=== PATIENT | male | born 1995 | race Two or more races ===

== ENCOUNTER 2022-05-21 07:34 | Emergency (ER) | payer OTHER ==
[~2022-05-21] VITALS: Ht 167.6 cm; Wt 68.0 kg
--- NOTE | 2022-05-21 07:35 | NUR ---
ReceIved pt 26yrs male came from home c/o abdominal pain x 2hrs sudnly pain andomin soft
--- NOTE | 2022-05-21 07:45 | NUR ---
UA SENT TO LAB
--- NOTE | 2022-05-21 07:55 | NUR ---
SEEN BY DR. GARDNER
--- NOTE | 2022-05-21 07:57 | NUR ---
INSERTED ANGO CATHETER G 20 ONRT AC BLOOD DROW AND SENT TO LAB
[2022-05-21] MEDS ORDERED: FAMOTIDINE/PF INJ 20 MG/2 ML VIAL IV ONE ×2 (08:00)
[2022-05-21] MEDS ORDERED: IV NS 0.9% 1,000 ML BAG IV ONE (08:00)
[2022-05-21] MEDS ORDERED: ONDANSETRON HCL/PF 4 MG/2 ML VIAL ONE (08:00)
[2022-05-21] MEDS ORDERED: KETOROLAC TROMETHAMINE 15 MG/ML VIAL ONE (08:00)
[2022-05-21] MEDS ORDERED: KETOROLAC TROMETHAMINE INJ 30 MG/ML VIAL IV ONE (08:00)
[2022-05-21] MEDS ORDERED: ONDANSETRON HCL/PF 4 MG/2 ML VIAL IVP ONE (08:00)
[2022-05-21 08:09] LABS: BASOPHILS % (AUTO) 0.1 % (0.0-2.0); EOSINOPHILS % (AUTO) 0.1 % (0.0-6.0); HEMATOCRIT 41 % (39-51); HEMOGLOBIN 13.5 g/dL (13.5-17.5); LYMPHOCYTES # (AUTO) 1.2 K/uL (0.8-4.8); LYMPHOCYTES % (AUTO) 12.3 % (20.0-44.0); MEAN CORPUSCULAR HGB CONC 33 g/dl (31.0-36.0); MEAN CORPUSCULAR VOLUME 88 fL (80-96); MONOCYTES # (AUTO) 0.3 K/uL (0.1-1.30); MONOCYTES % (AUTO) 3.4 % (2.0-12.0); NEUTROPHILS % (AUTO) 84.1 % (43.0-81.0); PLATELET COUNT (AUTO) 234 K/uL (150-450); RED BLOOD CELL COUNT(AUTO) 4.65 MIL/uL (4.5-6.0); WHITE BLOOD COUNT (AUTO) 9.5 K/uL (4.3-11.0)
[2022-05-21 08:19] LABS: CREATININE 0.8 mg/dL (0.6-1.3); POTASSIUM 2.9 mmol/L (3.5-5.1)
[2022-05-21 08:24] LABS: ALBUMIN 4.4 g/dL (3.4-5.0); BILIRUBIN,DIRECT 0.2 mg/dL (0.0-0.2); BILIRUBIN,TOTAL 0.5 mg/dL (0.2-1.0); TOTAL PROTEIN, SERUM 7.6 g/dL (6.4-8.2)
--- NOTE | 2022-05-21 08:30 | NUR ---
TO CT SCAN OF ABDOMINAL
[2022-05-21] MEDS ORDERED: POTASSIUM CL. PREMIX PERIPHER. 300 ML ONE (08:47)
[2022-05-21] MEDS: POTASSIUM CL. PREMIX PERIPHER. 50 ML IV SCH ×2 (08:49→09:33)
--- NOTE | 2022-05-21 09:28 | NUR ---
tolorated po intack no N/V AT THIS TIME
--- NOTE | 2022-05-21 10:08 | NUR ---
lilyted po intack regrale food
--- NOTE | 2022-05-21 10:29 | NUR ---
RESTING AND ASLEEPY AT THIS TIME NO PAIN NO N/V AT THIS TIME
[2022-05-21] MEDS ORDERED: POTASSIUM CHLORIDE 20 MEQ POWDER PACKET PO ONE (10:30)
--- NOTE | 2022-05-21 10:40 | NUR ---
IV removed. Catheter intact and site benign. Pressure and 4x4 applied to site. No bleeding noted.
[2022-05-21 10:43] VITALS: BP 139/89
--- NOTE | 2022-05-21 10:43 | NUR ---
Patient discharged to home in stable condition. Written and verbal after care instructions given. Patient verbalizes understanding of instruction.
[2022-05-21] MEDS ORDERED: IBUPROFEN 600 MG TABLET ONE (11:29)
[2022-05-21] MEDS ORDERED: IBUPROFEN 600 MG TABLET PO ONE (11:30)
--- NOTE | 2022-05-21 11:58 | NUR ---
D/C HOME STABLE CODITION AWAKE AND ALERT NO ABDOMINALE PAIN
== END 2022-05-21 12:01 | disposition home or self-care (01) ==
LOC: ER 08:01
DX: R10.84 Generalized abdominal pain (principal)
CPT/HCPCS: 99285; 74176; 96365; 96375; 96361; 85025; 80048; 83690; 80076; 36415; J3490; J2405; J7030; J3480; A4223; J1885; A6403